=== PATIENT | female | born 1965 ===

== ENCOUNTER 2017-01-30 09:56 | Emergency (ER) | payer MEDICAID ==
[2017-01-30 10:02] VITALS: BP 139/87; PULSE 84; RESP 22; TEMP 97.3; O2SAT 100
[2017-01-30] MEDS ORDERED: cefTRIAXone (Rocephin) 250 mg Inj IM ONE (10:56)
--- NOTE | 2017-01-30 10:58 | ED PDOC ---
HPI: Female Pain Time Seen by Provider: 01/30/17 10:00 Chief Complaint (Nursing): Female Genitourinary Chief Complaint (Provider): Pelvic pain History Per: Patient Additional Complaint(s): 51 yo female, denies nay PMH, presents to ED with complaints of 2-3 days of foul -smelling vaginal discharge, associated with irritation, itching and suprapubic pain. No fever or chills. Pt reports a history of STDs for which she was treated for, unable to recall which she has had. Past Medical History Reviewed: Nursing Documentation, Vital Signs Vital Signs: Last Vital Signs Temp 97.3 F L 01/30/17 10:01 Pulse 84 01/30/17 10:01 Resp 22 01/30/17 10:01 BP 139/87 01/30/17 10:01 Pulse Ox 100 01/30/17 10:01 - Medical History PMH: No Chronic Diseases Denies: Chronic Kidney Disease - Surgical History Surgical History: No Surg Hx - Family History Family History: States: No Known Family Hx - Living Arrangements Living Arrangements: With Family - Social History Current smoker - smoking cessation education provided: No Alcohol: Social Drugs: Cannabis - Home Medications Home Medications: Ambulatory Orders Medication Instructions Recorded Doxycycline Hyclate 100 mg PO BID 28 Days capsule 01/30/17 Metronidazole [Metrogel-Vaginal] 1 ea VG HS #5 gel 01/30/17 - Allergies Allergies/Adverse Reactions: Allergies Allergy/AdvReac Type Severity Reaction Status Date / Time No Known Allergies Allergy Verified 01/30/17 10:24 Review of Systems ROS Statement: Except As Marked, All Systems Reviewed And Found Negative Genitourinary Female: Positive for: Vaginal Discharge Physical Exam - Reviewed Nursing Documentation Reviewed: Yes Vital Signs Reviewed: Yes - Physical Exam Appears: Positive for: Well, Non-toxic, No Acute Distress Head Exam: Positive for: ATRAUMATIC, NORMAL INSPECTION, NORMOCEPHALIC Skin: Positive for: Normal Color, Warm, DRY Eye Exam: Positive for: EOMI, Normal appearance, PERRL ENT: Positive for: Normal ENT Inspection Neck: Positive for: Normal, Painless ROM Cardiovascular/Chest: Positive for: Regular Rate, Rhythm Respiratory: Positive for: CNT, Normal Breath Sounds Gastrointestinal/Abdominal: Positive for: Normal Exam, Bowel Sounds, Soft. Negative for: Tenderness Pelvic Exam: Positive for: External Exam Normal, Cervicitis (foul smelling), Discharge. Negative for: No Cerv. Motion Tender, No Masses, Active Bleeding, Blood, Lesions, Mass, Tender W/Cervical Motion, Tender Adnexa, Tender Uterus Back: Positive for: Normal Inspection Extremity: Positive for: Normal ROM Neurologic/Psych: Positive for: Alert, Oriented - ECG O2 Sat by Pulse Oximetry: 100 Medical Decision Making Medical Decision Making: Medicated with Zithro PO 1 gm and Rocephin 250 mg IM while in ED GC/C Sent RX for Doxy and Metrogel written as well importance if OB follow up stressed Disposition - Clinical Impression Clinical Impression: Vaginitis - Disposition Disposition: Routine/Home Disposition Time: 14:48 Condition: STABLE Prescriptions: Doxycycline Hyclate 100 mg PO BID 28 Days capsule Metronidazole [Metrogel-Vaginal] 1 ea VG HS #5 gel Instructions: Vaginitis (ED) Forms: [facility] ([place])
[2017-01-30 12:54] LABS: RBC URINE 2 /hpf (0-3); URINE BACTERIA RARE (<OCC); URINE BILIRUBIN NEGATIVE (NEGATIVE); URINE BLOOD NEGATIVE (NEGATIVE); URINE COLOR YELLOW (YELLOW); URINE GLUCOSE (UA) NEG (Normal); URINE KETONE TRACE mg/dL (NEGATIVE); URINE LEUKOCYTE ESTERASE LARGE Leu/uL (Negative); URINE PROTEIN NEGATIVE (NEGATIVE); URINE UROBILINOGEN 0.2-1.0 mg/dL (0.2-1.0); WBC URINE 1 /hpf (0-5)
== END 2017-01-30 15:03 | disposition home or self-care (01) ==
LOC: H.ER 09:56
DX: N76.0 Acute vaginitis (principal)
CPT/HCPCS: 81003; 87491; 87591; 96372; 99283; J0696

== ENCOUNTER 2017-03-11 04:06 | Emergency (ER) | payer MEDICAID ==
[2017-03-11 04:13] VITALS: BP 153/95; PULSE 79; RESP 18; TEMP 97.7; O2SAT 100
[2017-03-11] MEDS ORDERED: cefTRIAXone (Rocephin) 250 mg Inj IM ONE (04:37)
--- NOTE | 2017-03-11 04:41 | ED PDOC ---
HPI: General Adult Time Seen by Provider: 03/11/17 04:30 Chief Complaint (Nursing): Medical Clearance Chief Complaint (Provider): clearance for incarceration History Per: Patient Additional Complaint(s): 51 y/o female history of polysubstance abuse here in police custody for clearance for incarceration. 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 Patient also states she engages in anal intercourse sometimes and has noted rectal bleeding. Denies fever, nausea/vomiting, abdominal/pelvic pain, changes in bowel movements, vaginal bleeding/discharge, dysuria, hematuria. Past Medical History Reviewed: Historical Data, Nursing Documentation, Vital Signs Vital Signs: Last Vital Signs Temp 97.7 F 03/11/17 04:08 Pulse 79 03/11/17 04:08 Resp 18 03/11/17 04:08 BP 153/95 H 03/11/17 04:08 Pulse Ox 100 03/11/17 05:26 - Medical History PMH: No Chronic Diseases Denies: Chronic Kidney Disease - Surgical History Surgical History: No Surg Hx - Family History Family History: States: No Known Family Hx - Social History Current smoker - smoking cessation education provided: Yes Alcohol: Occasional Drugs: Opiates, Prescription medications, Other (xanax) - Home Medications Home Medications: Ambulatory Orders Medication Instructions Recorded Doxycycline Hyclate 100 mg PO BID 28 Days capsule 01/30/17 Metronidazole [Metrogel-Vaginal] 1 ea VG HS #5 gel 01/30/17 - Allergies Allergies/Adverse Reactions: Allergies Allergy/AdvReac Type Severity Reaction Status Date / Time No Known Allergies Allergy Verified 01/30/17 10:24 Review of Systems ROS Statement: Except As Marked, All Systems Reviewed And Found Negative Gastrointestinal: Positive for: Rectal Pain (bleeding) Physical Exam - Reviewed Nursing Documentation Reviewed: Yes Vital Signs Reviewed: Yes - Physical Exam Appears: Positive for: Well, Non-toxic, No Acute Distress Head Exam: Positive for: ATRAUMATIC, NORMAL INSPECTION, NORMOCEPHALIC Skin: Positive for: Normal Color Eye Exam: Positive for: Normal appearance ENT: Positive for: Normal ENT Inspection Cardiovascular/Chest: Positive for: Regular Rate, Rhythm Respiratory: Positive for: Normal Breath Sounds Gastrointestinal/Abdominal: Positive for: Normal Exam Back: Positive for: Normal Inspection Rectal: Negative for: Black Stool, Blood Streaked Stool, Hemorrhoids, Tenderness Extremity: Positive for: Normal ROM Neurologic/Psych: Positive for: Alert, Oriented - ECG O2 Sat by Pulse Oximetry: 100 - Progress ED Course And Treament: stool occult neg. Patient given Rocephin, Zithromax. Educated on safe sex. Patient states she does not wish to have her "female issues" printed as diagnosis on her papers. Advised to follow up PMD/Home Economics Teacher Patient cleared by crisis for discharge as per Dr. Templeton Disposition - Clinical Impression Clinical Impression: Polysubstance abuse - Patient ED Disposition Is Patient to be Admitted: No Counseled Patient/Family Regarding: Studies Performed, Diagnosis, Need For Followup - Disposition Referrals: [facility] [Outside] [facility] [Outside] Disposition: Discharged/Transfer to Law Enforcement Disposition Time: 05:26 Condition: STABLE Additional Instructions: Patient medically and psychiatrically cleared for incarceration Instructions: Polysubstance Abuse (ED)
[2017-03-11] MEDS ORDERED: cefTRIAXone (Rocephin) 250 mg Inj ONE (05:28)
== END 2017-03-11 06:06 ==
LOC: H.ER 04:06
DX: F19.10 Other psychoactive substance abuse, uncomplicated; K62.5 Hemorrhage of anus and rectum
CPT/HCPCS: 81025; 87086; 87491; 87591; 99282; G0328